=== PATIENT | male | born 1985 | race Two or more races ===

== ENCOUNTER 2021-10-09 20:23 | Emergency (ER) | payer MEDICAID ==
[~2021-10-09] VITALS: Ht 162.6 cm; Wt 67.6 kg
--- NOTE | 2021-10-09 21:45 | NUR ---
BIBSELF C/O Diarrhea FOR THE PAST 2 WEEKS. PT AWAKE AND ALERT X4 BREATHING EVEN AND UNLABORED. CHANGED INTO GOWN AND PLACED ON MONITOR AND V/S WNL.
--- NOTE | 2021-10-09 21:48 | NUR ---
20g rac established blood drawn and sent to lab
--- NOTE | 2021-10-09 21:50 | NUR ---
URINE COLLECTED AND SENT TO LAB
--- NOTE | 2021-10-09 22:02 | NUR ---
[employer] SUPERVISOR AT PT'S BEDSIDE
[2021-10-09] MEDS ORDERED: DICYCLOMINE HCL 10 MG CAPSULE PO ONE ×2 (22:20→22:30)
[2021-10-09 22:26] LABS: BASOPHILS # (AUTO) 0.1 K/uL (0.0-0.2); BASOPHILS % (AUTO) 2.4 % (0.0-2.0); EOSINOPHILS % (AUTO) 2.1 % (0.0-6.0); HEMATOCRIT 40 % (39-51); HEMOGLOBIN 13.6 g/dL (13.5-17.5); LYMPHOCYTES # (AUTO) 0.9 K/uL (0.8-4.8); LYMPHOCYTES % (AUTO) 20.4 % (20.0-44.0); MEAN CORPUSCULAR HGB CONC 34 g/dl (31.0-36.0); MEAN CORPUSCULAR VOLUME 81 fL (80-96); MONOCYTES # (AUTO) 0.6 K/uL (0.1-1.30); MONOCYTES % (AUTO) 12.4 % (2.0-12.0); NEUTROPHILS # (AUTO) 2.8 K/uL (1.8-8.9); NEUTROPHILS % (AUTO) 62.7 % (43.0-81.0); PLATELET COUNT (AUTO) 290 K/uL (150-450); RED BLOOD CELL COUNT(AUTO) 4.97 MIL/uL (4.5-6.0); WHITE BLOOD COUNT (AUTO) 4.5 K/uL (4.3-11.0)
--- NOTE | 2021-10-09 22:31 | NUR ---
PT BEING TRANSPORTED TO CT VIA [facility]
--- NOTE | 2021-10-09 22:41 | NUR ---
PT RETURNED FROM CT
[2021-10-09 22:49] LABS: ALBUMIN 3.7 g/dL (3.4-5.0); BILIRUBIN,DIRECT 0.2 mg/dL (0.0-0.2); BILIRUBIN,TOTAL 0.7 mg/dL (0.2-1.0); CALCIUM, SERUM 8.5 mg/dL (8.5-10.1); POTASSIUM 3.9 mmol/L (3.5-5.1); TOTAL PROTEIN, SERUM 7.4 g/dL (6.4-8.2)
[2021-10-09] MEDS ORDERED: PRED20TA PO (23:20)
[2021-10-09] MEDS ORDERED: predniSONE 20 MG TABLET PO ONE (23:30)
--- NOTE | 2021-10-09 23:42 | NUR ---
Patient discharged to home in stable condition. Written and verbal after care instructions given. Patient verbalizes understanding of instruction.IV removed. Catheter intact and site benign. Pressure and 4x4 applied to site. No bleeding noted.
[2021-10-09 23:43] VITALS: BP 141/87
[2021-10-10] LABS: BILIRUBIN,URINE NEGATIVE (NEGATIVE); COLOR,URINE YELLOW (YELLOW); LEUKOCYTE ESTERASE ,URINE NEGATIVE (NEGATIVE); NITRITE, URINE NEGATIVE (NEGATIVE); PH,URINE 5.5 (5.0-8.0); PROTEIN,URINE NEGATIVE (NEGATIVE); UGLUCOSE NEGATIVE (NEGATIVE); UROBILINOGEN,URINE 0.2 EU/dL (0.2)
== END 2021-10-09 23:44 | disposition home or self-care (01) ==
LOC: ER 20:28
DX: K52.9 Noninfective gastroenteritis and colitis, unspecified (principal); Z79.899 Other long term (current) drug therapy
CPT/HCPCS: 36415; 80048-TC; 80076-TC; 83690-TC; 85025-TC